=== PATIENT | female | born 2000 ===

== ENCOUNTER 2020-03-27 23:52 | Outpatient (CLI) | payer MEDICAID ==
[2020-03-28 00:09] VITALS: BP 111/66
== END 2020-03-28 00:48 | disposition home or self-care (01) ==
LOC: TRG 23:52 → APU 03-28 → TRG 03-28 00:48
PROVIDERS: ATTEND Obstetrics & Gynecology
DX: O47.1 False labor at or after 37 completed weeks of gestation (principal); Z3A.38 38 weeks gestation of pregnancy
CPT/HCPCS: 59025

== ENCOUNTER 2020-04-07 09:51 | Inpatient (IN) | payer MEDICAID ==
[2020-04-07] MEDS ORDERED: ONDANSETRON 4 MG/2 ML INJ IV PRN (11:25)
[2020-04-07] MEDS ORDERED: BUTORPHANOL 2 MG/1 ML INJ IV PRN (11:25)
[2020-04-07] MEDS ORDERED: TERBUTALINE 1 MG/1 ML INJ SUB-Q PRN (11:25)
[2020-04-07] MEDS ORDERED: MINERAL OIL 30 ML ORAL LIQD PO PRN (11:25)
[2020-04-07] MEDS ORDERED: TERBUTALINE 1 MG/1 ML INJ IVP PRN (11:25)
[2020-04-07] MEDS ORDERED: ePHEDrine SULFATE 50 MG/1 ML INJ IV PRN (11:25)
[2020-04-07] MEDS ORDERED: LIDOCAINE (2%) 20 MG/1 ML VIAL 20 ML MDV INFILTRATI ONE ×2 (11:25→15:42)
[2020-04-07] MEDS ORDERED: fentaNYL 100 MCG/2 ML INJ IV PRN (11:25)
--- NOTE | 2020-04-07 11:36 | History and Physical Report ---
History of Present Illness Date of examination: 04/07/20 Date of admission: 04/07/2020 Chief complaint: Regular painful ctxs; 39 wks gestation History of present illness: 19 yo, G1 @ 39.2 wks, initiated care wit [facility] at 19 wks gestation. Her has been complicated by late entry to [facility], anemia, and constipation. She presents to [facility] with reports of leaking fluid at 0845 this morning and frequent painful ctxs for past 1hr. Reports +FM. Denies any VB or LOF. Labs: O+, antibody negative; rubella immune; VDRL non-reactive; HBsAg negative; varicella immune; GC/Chlamydia/Trich negative; MSAFP Multiple markers negative; HIV negative; 1 hr gtt- 81; GBS negative. Past History Past Medical History: no pertinent history Past Surgical History: no surgical history Family/Genetic History: heart disease Social history: single, lives with family, full code. denies: smoking, alcohol abuse, prescription drug abuse, IV drug use - Obstetrical History Expected Date of Delivery: 04/12/20 Actual Gestation: 39 Week(s) 2 Day(s) : 1 Para: 0 Hx # Term Pregnancies: 0 Number of Pregnancies: 0 Spontaneous Abortions: 0 Induced : 0 Number of Living Children: 0 Medications and Allergies Allergies Allergy/AdvReac Type Severity Reaction Status Date / Time No Known Allergies Allergy Unverified 03/28/20 00:26 Active Meds: Active Medications Butorphanol Tartrate (Stadol) 2 mg IV Q2H PRN PRN Reason: Pain , Severe (7-10) Ephedrine Sulfate (Ephedrine Sulfate) 10 mg IV Q2M PRN PRN Reason: Hypotension Fentanyl (Sublimaze) 100 mcg IV Q2H PRN PRN Reason: Pain,Severe (7-10) LABOR PAIN Oxytocin/Sodium Chloride (Pitocin/Ns 20 Unit/1000ml Drip) 20 units in 1,000 mls @ 125 mls/hr IV DIRECT FRANCISCA Lactated Ringer's (Lactated Ringers) 1,000 mls @ 125 mls/hr IV DIRECT FRANCISCA Lidocaine (Xylocaine 2%) 20 ml INFILTRATI ONCE ONE Stop: 04/07/20 11:26 Mineral Oil (Mineral Oil) 30 ml PO QHS PRN PRN Reason: Constipation Ondansetron HCl (Zofran) 4 mg IV Q8H PRN PRN Reason: Nausea And Vomiting Terbutaline Sulfate (Brethine) 0.25 mg SUB-Q ONCE PRN PRN Reason: Hyperstimulation/Hypertonicity Terbutaline Sulfate (Brethine) 0.25 mg IVP ONCE PRN PRN Reason: Hyperstimulation/Hypertonicity Review of Systems All systems: negative Genitourinary: contractions - Vital Signs Vital signs: Vital Signs Pulse BP 90 110/64 04/07/20 10:31 04/07/20 10:31 Temp Pulse Resp BP Pulse Ox 90 110/64 04/07/20 10:31 04/07/20 10:31 - Physical Exam Breasts: Positive: normal Cardiovascular: Regular rate Lungs: Positive: Normal air movement Abdomen: Positive: other (gravid) Vagina: Positive: normal moisture (clear fluids) Uterus: Positive: enlarged (S>D) Extremities: Positive: normal Deep Tendon Reflex Grade: Normal +2 - Obstetrical FHR: category 1 Uterine Contraction Monitor Mode: External Cervical Dilatation: 9 (per RN) Cervical Effacement Percentage: 90 station: -1 Uterine Contraction Frequency (min): 2-3 Uterine Contraction Pattern: Irregular Uterine Tone Measurement Phase: Resting Uterine Contraction Intensity: Strong/Firm Results All other labs normal. Assessment and Plan - Patient Problems (1) SROM (spontaneous rupture of membranes) Current Visit: Yes Status: Acute Plan to address problem: Admit to L & D Pain meds as desired Temp q h Anticipate (2) Intrauterine in teenager Current Visit: Yes Status: Acute Plan to address problem: Case management consult PP (3) 39 weeks gestation of Current Visit: Yes Status: Acute
[2020-04-07] MEDS ORDERED: LACTATED RINGERS 1,000 ML IV SCH (12:00)
[2020-04-07] MEDS ORDERED: OXYTOCIN 20 UNIT/1000ML DRIP 20 UNITS/1,000 ML BAG IV SCH (12:00)
[2020-04-07] MEDS ORDERED: LANOLIN/ZINC/DIMETHICONE (LANSINOH) 7 GM TP PRN (16:04)
[2020-04-07] MEDS ORDERED: diphenhydrAMINE 25 MG CAP PO PRN (16:04)
[2020-04-07] MEDS ORDERED: PROMETHAZINE 25 MG TAB PO PRN (16:04)
[2020-04-07] MEDS ORDERED: WITCH HAZEL/ GLYCERIN PAD TP PRN (16:04)
[2020-04-07] MEDS ORDERED: MAGNESIUM HYDROXIDE (MOM) ORAL LIQD UDC PO PRN (16:04)
[2020-04-07] MEDS ORDERED: oxyCODONE /ACETAMINOPHEN 5-325MG TAB PO PRN (16:04)
--- NOTE | 2020-04-07 16:08 | Procedure Note ---
OB Delivery Note - Delivery Date of Delivery: 04/07/20 (1532) Surgeon: JAVED CHAVEZ (CNM) Estimated blood loss: 200cc - Vaginal Delivery presentation: vertex Delivery position: OA (MARIA TERESA) Delivery induction: none Delivery augmentation: rupture of membranes (0830) Delivery monitor: external FHT, external uterine Route of delivery: Delivery placenta: spontaneous (153) Delivery cord: 3 umbilical vessels Episiotomy: none Delivery laceration: 2nd degree (perineal, repaired) Delivery repair: vicryl (3.0 SH) Anesthesia: none Delivery comments: of viable, alert, crying male infant, placed directly to maternal abdomen. Cord double clamped, cut by MGM. Cord blood collected and sent to lab. Placenta spontaneously delivered, sotelo, disposed per hospital policy. Uterus firm @ U -3, hemostasis maintained. Perineum with 2nd degree laceration, repaired. Mother and baby safe, stable and left in care of RN. - A at 1 minute: 8 at 5 minutes: 9 Gender: Male (Weight: 3159 gms (6lbs 15.5 ozs) 19 inches)
[2020-04-07 16:12] LABS: Mean Corpuscular HGB Conc 35 % (30-34); Mean Corpuscular Volume 96 fl (79-97); Platelet Count 291 K/mm3 (140-440)
[2020-04-07 16:21] LABS: Hemoglobin 12.5 gm/dl (10.1-14.3); Red Blood Count 3.78 M/mm3 (3.65-5.03)
[2020-04-07] MEDS: IBUPROFEN 600 MG TAB PO SCH (17:07)
[2020-04-08] MEDS: IBUPROFEN 600 MG TAB PO SCH ×4 (03:22→23:49)
[2020-04-08 05:49] LABS: Hemoglobin 9.9 gm/dl (10.1-14.3)
[2020-04-08] MEDS: PRENATAL VIT27-FE FUMARATE-FOLIC ACID VIT TAB PO SCH (09:52)
[2020-04-08] MEDS: FERROUS SULFATE 325 MG TAB PO SCH (09:52)
--- NOTE | 2020-04-08 10:59 | Progress Note ---
Assessment and Plan A: day 1 S/P . Anemia. P: Supplement with iron. Anticipate discharge home tomorrow. Subjective - Subjective Date of service: 04/08/20 Principal diagnosis: day 1 S/P Interval history: day 1 S/P . Patient reports: appetite normal, voiding normally, pain well controlled, flatus, ambulating normally, no dizzy ambulation, no nauseated : doing well Objective - Vital Signs Latest vital signs: Vital Signs Temp Pulse Resp BP BP Pulse Ox 04/08/20 09:59 20 04/08/20 09:51 20 04/08/20 08:40 98.6 F 73 20 99/60 04/08/20 02:02 98.1 F 65 18 104/58 97 04/07/20 21:02 98.2 F 79 18 103/66 97 04/07/20 17:25 98.0 F 71 20 100/59 98 04/07/20 17:00 98.9 F 16 04/07/20 16:51 80 90/51 04/07/20 16:36 85 95/50 04/07/20 16:22 92 H 98/54 04/07/20 15:52 99.2 F 18 04/07/20 15:51 90 97/55 04/07/20 15:36 109 H 98/59 Intake and Output 04/07/20 04/08/20 04/08/20 23:59 07:59 15:59 Intake Total 740 360 320 Output Total 800 8 Balance -60 352 320 Intake: IV 500 PITOCin/NS 20 UNIT/1000ML 500 DRIP 20 units In 1,000 ml @ 125 mls/hr IV DIRECT FRANCISCA Rx#:[id number] Oral 320 Intake, Free Water 240 360 Output: Urine 800 8 Void 800 8 Other: Total, Intake Amount 320 Total, Output Amount 800 8 - Exam Cardiovascular: Present: Regular rate, Normal S1, Normal S2 Lungs: Present: Clear to auscultation Abdomen: Present: normal appearance, soft. Absent: distention, tenderness, guarding, rigidity Uterus: Present: normal, firm, fundal height below umbilicus. Absent: bogginess, tenderness Extremities: Present: normal. Absent: tenderness, edema - Labs Labs: Abnormal lab results 04/07/20 04/08/20 Range/Units 14:27 04:16 WBC 15.3 H (4.5-11.0) K/mm3 Hgb 9.9 L (10.1-14.3) gm/dl Hct 28.0 L D (30.3-42.9) % MCH 33 H (28-32) pg MCHC 35 H (30-34) % RDW 13.0 L (13.2-15.2) %
[2020-04-09] MEDS: IBUPROFEN 600 MG TAB PO SCH (08:44)
[2020-04-09] MEDS: FERROUS SULFATE 325 MG TAB PO SCH (08:45)
[2020-04-09] MEDS: PRENATAL VIT27-FE FUMARATE-FOLIC ACID VIT TAB PO SCH (08:45)
--- NOTE | 2020-04-09 12:23 | Progress Note ---
Assessment and Plan A: day 2 S/P . Anemia. P: Discharge patient home today. Discussed with patient discharge instructions and warning signs. Advised patient to continue taking her preantal vitamins and iron supplements at home. Advised patient to take Colace OTC stool softener. Advised patient to avoid intercourse, lifting, and heavy housework. Advised patient to follow up at [facility] in 6 weeks for exam. Patient voiced understanding of all instructions. Subjective - Subjective Date of service: 04/09/20 Principal diagnosis: day 2 S/P Interval history: day 2 S/P . Patient desires discharge home today. Patient reports: appetite normal, voiding normally, pain well controlled, flatus, ambulating normally, no dizzy ambulation, no bowel movement, no nauseated : doing well Objective - Vital Signs Latest vital signs: Vital Signs Temp Pulse Resp BP 04/09/20 09:40 98 F 67 20 100/64 04/09/20 08:44 20 04/09/20 00:00 98.7 F 66 18 107/77 04/08/20 16:55 97.9 F 80 20 113/68 Intake and Output 04/08/20 04/09/20 04/09/20 23:59 07:59 15:59 Intake Total 440 300 120 Output Total 600 Balance -160 300 120 Intake: Oral 440 120 Intake, Free Water 300 Output: Urine 600 Void 600 Other: Total, Intake Amount 120 120 Total, Output Amount 600 # Voids Void 1 - Exam Cardiovascular: Present: Regular rate, Normal S1, Normal S2, No murmurs Lungs: Present: Clear to auscultation Abdomen: Present: normal appearance, soft, normal bowel sounds. Absent: distention, tenderness, guarding, rigidity Uterus: Present: normal, firm, fundal height below umbilicus. Absent: bogginess, tenderness Extremities: Present: normal. Absent: tenderness, edema
--- NOTE | 2020-04-09 12:26 | Discharge Summary ---
Providers - Providers Date of Admission: 04/07/20 09:52 Date of discharge: 04/09/20 Attending physician: JANKI MANTILLA 04/08/20 14:34 Consult to Case Management [CONS] Routine Services Needed at Discharge: Commercial Collections Driver Notified:: [id number] Phone number called:: [phone] Additional Physician Instructions: LATE CARE Primary care physician: JANKI MANTILLA Hospitalization Reason for admission: active labor Delivery: Episiotomy: none Laceration: 2nd degree Other procedures: none complications: none Discharge diagnosis: IUP at term delivered baby: male Pertinent studies: Labs Hospital course: Normal hospital course Condition at discharge: Good Disposition: DC-01 TO HOME OR SELFCARE - Discharge Diagnoses (1) Term delivered Status: Acute (2) Anemia Status: Acute Plan - Provider Discharge Summary Activity: routine, no sex for 6 weeks, no heavy lifting 4 weeks, no strenuous exercise Diet: routine Instructions: routine Additional instructions: Continue taking your iron and vitamins at home. Take OTC Colace as a stool softener. Call your doctor immediately for: * Fever > 100.5 * Heavy vaginal bleeding ( >1 pad per hour) * Severe persistent headache * Shortness of breath * Reddened, hot, painful area to leg or breast - Follow up plan Follow up: JANKI MANTILLA MD [Primary Care Provider] - 6 Weeks
[2020-04-09 15:59] VITALS: BP 106/65
== END 2020-04-09 15:30 | disposition home or self-care (01) | DRG 775 ==
LOC: TRG 09:51 → LD 09:51 → APU 09:52 → LD 09:52 → TRG 09:52 → APU 10:00 → OB 17:32
PROVIDERS: ADMIT Obstetrics & Gynecology; ATTEND Obstetrics & Gynecology
PROC: 10E0XZZ Delivery of Products of Conception, External Approach (ICD-10-PCS; principal; 2020-04-07)
PROC: 0KQM0ZZ Repair Perineum Muscle, Open Approach (ICD-10-PCS; 2020-04-07)
DX: O70.1 Second degree perineal laceration during delivery (principal); Z37.0 Single live birth; Z3A.39 39 weeks gestation of pregnancy; O99.02 Anemia complicating childbirth; D64.9 Anemia, unspecified
CPT/HCPCS: 36415; 85014; 85018; 85027; 86850; 86900; 86901; G0378; A6250; J0595; J7120